=== PATIENT | female | born 1975 | race Caucasian/White ===

== ENCOUNTER 2017-02-05 10:43 | Emergency (ER) | payer BC, OTHER ==
[~2017-02-05] VITALS: Ht 177.8 cm; Wt 190.0 kg
[2017-02-05 10:52] VITALS: BP 133/89
--- NOTE | 2017-02-05 11:01 | PHYS DOC ---
Adult General Chief Complaint Chief Complaint: HEADACHE HPI HPI This a 41-year-old female who has history of migraine headaches who normally takes Topamax daily as well as Relpax which is a triptan. She states she has been unable to fill her Relpax prescription and for the last 3 days has had a progressively worsening headache in her usual migraine pattern. She has aura, light sensitivity, and photophobia with nausea. She denies any fever or chills. She denies any other history of health problems. Patient does have history of hysterectomy. She denies any neck tenderness. Patient is completely nontoxic and afebrile upon arrival. Review of Systems Review of Systems Constitutional: Denies fever or chills [] Eyes: Denies change in visual acuity, redness, or eye pain [] HENT: Denies nasal congestion or sore throat [] Respiratory: Denies cough or shortness of breath [] Cardiovascular: No additional information not addressed in HPI [] GI: Denies abdominal pain, nausea, vomiting, bloody stools or diarrhea [] : Denies dysuria or hematuria [] Musculoskeletal: Denies back pain or joint pain [] Integument: Denies rash or skin lesions [] Neurologic: Has headache, denies focal weakness or sensory changes [] Endocrine: Denies polyuria or polydipsia [] Allergies Allergies Allergies Coded Allergies Type Severity Reaction Last Updated Verified No Known Drug Allergies 02/05/17 No Physical Exam Physical Exam Constitutional: Well developed, well nourished, no acute distress, non-toxic appearance. [] HENT: Normocephalic, atraumatic, bilateral external ears normal, oropharynx moist, no oral exudates, nose normal. [] Eyes: PERRLA, EOMI, conjunctiva normal, no discharge. [] Neck: Normal range of motion, no tenderness, supple, no stridor. [] Cardiovascular:Heart rate regular rhythm, no murmur [] Lungs & Thorax: Bilateral breath sounds clear to auscultation [] Abdomen: Bowel sounds normal, soft, no tenderness, no masses, no pulsatile masses. [] Skin: Warm, dry, no erythema, no rash. [] Back: No tenderness, no CVA tenderness. [] Extremities: No tenderness, no cyanosis, no clubbing, ROM intact, no edema. [] Neurologic: Alert and oriented X 3, normal motor function, normal sensory function, no focal deficits noted. [] Psychologic: Affect normal, judgement normal, mood normal. [] EKG EKG [] Radiology/Procedures Radiology/Procedures [] Course & Med Decision Making Course & Med Decision Making Pertinent Labs and Imaging studies reviewed. (See chart for details) This otherwise healthy 41-year-old female is having symptoms of a worsening migraine headache. This is likely due to the fact that she hasn't been able to take her usual migraine prophylactic medications. Traditional migraine cocktail will be administered including a dose of IV Toradol, IV Benadryl, IV Reglan, IV Decadron, and an IV fluid bolus. Patient will then be reassessed. If improved, she will be discharged and told to remain in a quiet dark room for the next 24 hours to avoid any heavy stimulus and to follow closely with her primary care doctor. She says she has a prescription for her usual migraine medicines but has been unable to fill them because of insurance purposes. Upon my reassessment, after migraine cocktail the patient feels much improved. Return precautions were provided and the patient is instructed to remain in a quiet room for the next 24 hours and to get plenty of rest and drink plenty of fluids. She states she feels much better and will follow this plan. Dragon Disclaimer Dragon Disclaimer This chart was dictated in whole or in part using Voice Recognition software in a busy, high-work load, and often noisy Emergency Department environment. It may contain unintended and wholly unrecognized errors or omissions. Departure Departure: Impression: Primary Impression: Migraine Disposition: 01 HOME, SELF-CARE Condition: IMPROVED Referrals: JO HALL DO (PCP) Patient Instructions: Migraine Headache, [id number] Additional Instructions: Please continue to drink plenty of fluids and get plenty of rest. Follow up closely with your primary doctor in the next 2-3 days for your migraine headache if it should persist. Remain in a quiet, dark room for the next 24 hours. Return to the ER if you develop any worsening of your symptoms. GRADY CHRISTIANSEN DO Feb 05, 2017 11:01
[2017-02-05] MEDS ORDERED: METOCLOPRAMIDE HCL 10 MG/2 ML VIAL. IV ONE (11:15)
[2017-02-05] MEDS ORDERED: IV NORMAL SALINE 1,000ML 1,000 ML IV ONE (11:15)
[2017-02-05] MEDS ORDERED: DIPHENHYDRAMINE 50 MG/ML VIAL IVP ONE (11:15)
[2017-02-05] MEDS ORDERED: KETOROLAC 30 MG/ML VIAL. IV ONE (11:15)
[2017-02-05] MEDS ORDERED: DEXAMETHASONE SOD PHOS 10 MG/ML VIAL IV ONE (11:15)
== END 2017-02-05 11:50 | disposition home or self-care (01) ==
LOC: ER 10:43
DX: G43.109 Migraine with aura, not intractable, without status migrainosus (principal)
CPT/HCPCS: 96361; 96374; 96375; 99284; J1100; J1200; J1885; J2765; J7030

== ENCOUNTER 2017-06-14 05:58 | Emergency (ER) | payer BC ==
[~2017-06-14] VITALS: Ht 177.8 cm; Wt 111.3 kg
--- NOTE | 2017-06-14 06:24 | PHYS DOC ---
Past History Past Medical History: Migraines Past Surgical History: Hysterectomy Alcohol Use: None Drug Use: None Adult General Chief Complaint Chief Complaint: HEADACHE HPI HPI Patient is a [41-year-old female with a history of migraines going back 6 years presents with the similar type of migraine headache. Patient recommendation a home for the last 2 days. Hasn't been going away, she is only taking aspirin. There is no history of trauma, recent travel, sick contacts or exposures. Patient states the migraine is the same as previous ones. Review of Systems Review of Systems Constitutional: Denies fever or chills [] Eyes: Denies change in visual acuity, redness, or eye pain [] HENT: Denies nasal congestion or sore throat [] Respiratory: Denies cough or shortness of breath [] Cardiovascular: No chest pain GI: Denies abdominal pain, : Denies dysuria or hematuria [] Musculoskeletal: Denies back pain or joint pain [] Integument: Denies rash or skin lesions [] Neurologic: Denies focal weakness or sensory changes . Yes to headache Current Medications Current Medications Current Medications Medications (Trade) Dose Ordered Sig/Gilda Start Time Stop Time Status Last Admin Dose Admin Diphenhydramine HCl (Benadryl) 25 mg 1X ONCE 06/14/17 06:30 06/14/17 06:31 Metoclopramide HCl (Reglan) 10 mg 1X ONCE 06/14/17 06:30 06/14/17 06:31 Sodium Chloride 1,000 ml @ 1,000 mls/hr 1X ONCE 06/14/17 06:30 06/14/17 07:29 Allergies Allergies Allergies Coded Allergies Type Severity Reaction Last Updated Verified No Known Drug Allergies 02/05/17 No Physical Exam Physical Exam Constitutional: Well developed, well nourished, no acute distress, non-toxic appearance. [] HENT: Normocephalic, atraumatic, , oropharynx moist, no oral exudates, nose normal. [] Eyes: PERRLA, EOMI, conjunctiva normal, no discharge. No papilledema Neck: Normal range of motion, no tenderness, supple, no stridor. No LAD, no meningeal signs Cardiovascular:Heart rate regular rhythm, no murmur, normal perfusion Lungs & Thorax: Bilateral breath sounds clear to auscultation, no tachypnea Abdomen: Bowel sounds normal, soft, no tenderness, no masses, Skin: Warm, dry, no erythema, no rash. [] Back: Normal range of motion Extremities: No tenderness, no cyanosis, DVT, ROM intact, no edema. [] Neurologic: Alert and oriented X 3, normal motor function, ambulates with normal gait and without assistance, no focal deficits noted. Normal speech Psychologic: Affect normal, judgement normal, mood normal. [] EKG EKG [] Radiology/Procedures Radiology/Procedures [] Course & Med Decision Making Course & Med Decision Making Pertinent Labs and Imaging studies reviewed. (See chart for details) 0735 pt feel improved, headache resolve, requests discharge home. I spoke to patient about discussing her problems with her doctor and requesting a referral to neurologist [] Dragon Disclaimer Dragon Disclaimer This chart was dictated in whole or in part using Voice Recognition software in a busy, high-work load, and often noisy Emergency Department environment. It may contain unintended and wholly unrecognized errors or omissions. Departure Departure: Impression: Primary Impression: Migraine Disposition: 01 HOME, SELF-CARE Condition: IMPROVED Referrals: JO HALL DO (PCP) follow up in 2-3 days Patient Instructions: Migraine Headache Ce HARRINGTON MD Jun 14, 2017 06:24
[2017-06-14] MEDS ORDERED: diphenhydrAMINE 50 MG/ML VIAL IVP ONE (06:30)
[2017-06-14] MEDS ORDERED: METOCLOPRAMIDE HCL 10 MG/2 ML VIAL. IV ONE (06:30)
[2017-06-14] MEDS ORDERED: IV NORMAL SALINE 1,000ML 1,000 ML IV ONE (06:30)
[2017-06-14] MEDS ORDERED: DEXAMETHASONE SOD PHOS 10 MG/ML VIAL IV ONE (07:15)
[2017-06-14] MEDS ORDERED: KETOROLAC 30 MG/ML VIAL. IV ONE (07:15)
[2017-06-14 07:40] VITALS: BP 132/87
== END 2017-06-14 07:40 | disposition home or self-care (01) ==
LOC: ER 05:58
DX: G43.909 Migraine, unspecified, not intractable, without status migrainosus (principal)
CPT/HCPCS: 96361; 96374; 96375; 99284; J1100; J1200; J1885; J2765; J7030

== ENCOUNTER → 2017-06-26 | Outpatient (CLI) | payer BC ==
[2017-06-14 07:40] VITALS: BP 132/87
[~2017-06-26] MED LIST: AMOX500C PO
== END | disposition home or self-care (01) ==
LOC: SURG 11:11
PROVIDERS: ATTEND Anesthesiology Pain Medicine
DX: M47.817 Spondylosis without myelopathy or radiculopathy, lumbosacral region (principal); M53.3 Sacrococcygeal disorders, not elsewhere classified; D18.09 Hemangioma of other sites
CPT/HCPCS: 99204

== ENCOUNTER → 2017-07-14 | Outpatient (CLI) | payer BC ==
[2017-06-14 07:40] VITALS: BP 132/87
[~2017-07-14] MED LIST changes: -AMOX500C PO; +ATROPINE 1 MG/10 ML DISP.SYRIN ONE; +BUPIVACAINE MPF 0.25% 10 ML VIAL. ONE; +DEXAMETHASONE SOD PHOS 4 MG/ML VIAL ONE; +EPINEPHrine SYRINGE 1 MG/10 ML SYRINGE ONE; +FLUMAZENIL 0.5 MG/5 ML VIAL. IV ONE; +GLUCAGON,HUMAN RECOMBINANT 1 MG KIT. ONE; +IV NORMAL SALINE 250ML 250 ML ONE; +LIDOCAINE 1% PF 30 ML VIAL. ONE; +MIDAZOLAM HCL PF 2 MG/2 ML VIAL. ONE; +NALOXONE 0.4 MG/ML VIAL. ONE; +diphenhydrAMINE 50 MG/ML VIAL ONE
== END | disposition home or self-care (01) ==
LOC: SURG 15:29
PROVIDERS: ATTEND Anesthesiology
DX: M53.3 Sacrococcygeal disorders, not elsewhere classified (principal)
CPT/HCPCS: 64450; 64493; 64494; J0171; J0461; J1100; J1200; J1610; J2001; J2250; J2310; J3010; J3490; J7050

== ENCOUNTER → 2017-08-14 | Outpatient (CLI) | payer BC | END | disposition home or self-care (01) | LOC: SURG 15:19 | PROVIDERS: ATTEND Anesthesiology Pain Medicine | DX: M54.2 Cervicalgia (principal); M47.817 Spondylosis without myelopathy or radiculopathy, lumbosacral region; D18.09 Hemangioma of other sites; M53.3 Sacrococcygeal disorders, not elsewhere classified; M06.9 Rheumatoid arthritis, unspecified; I48.91 Unspecified atrial fibrillation; E03.9 Hypothyroidism, unspecified; K52.9 Noninfective gastroenteritis and colitis, unspecified; K27.9 Peptic ulcer, site unspecified, unspecified as acute or chronic, without hemorrhage or perforation | CPT/HCPCS: 99213 ==

== ENCOUNTER 2017-09-17 08:01 | Emergency (ER) | payer BC ==
[~2017-09-17] VITALS: Ht 177.8 cm; Wt 111.1 kg
[2017-09-17] MEDS ORDERED: IV NORMAL SALINE 1,000ML 1,000 ML IV ONE (08:30)
[2017-09-17] MEDS ORDERED: diphenhydrAMINE 50 MG/ML VIAL IVP ONE (08:30)
[2017-09-17] MEDS ORDERED: PROCHLORPERAZINE 10 MG/2 ML VIAL. IV ONE (08:30)
[2017-09-17] MEDS ORDERED: KETOROLAC 30 MG/ML VIAL. IV ONE (08:30)
[2017-09-17 08:34] LABS: BASO % 1 % (0-3); EOS % 0 % (0-3); HEMATOCRIT 44.5 % (36.0-47.0); LYMPH # 1.5 x10^3/uL (1.0-4.8); LYMPH % 16 % (24-48); MEAN CORPUSCULAR HEMOGLOBIN 30 pg (25-35); MEAN CORPUSCULAR HGB CONC 34 g/dL (31-37); MEAN CORPUSCULAR VOLUME 88 fL (79-100); MONO # 0.5 x10^3/uL (0.0-1.1); MONO % 6 % (0-9); NEUT # 7.2 x10^3uL (1.8-7.7); NEUT % 78 % (31-73); PLATELET COUNT 286 x10^3/uL (140-400); RED BLOOD COUNT 5.07 x10^6/uL (3.50-5.40); RED CELL DISTRIBUTION WIDTH 13.1 % (11.5-14.5); WHITE BLOOD COUNT 9.3 x10^3/uL (4.0-11.0)
[2017-09-17 08:44] LABS: CALCIUM 9.5 mg/dL (8.5-10.1); CREATININE 0.9 mg/dL (0.6-1.0); GFR 69.3; POTASSIUM 3.5 mmol/L (3.5-5.1)
[2017-09-17] MEDS ORDERED: IV NORMAL SALINE 50ML 50 ML ONE (08:58)
[2017-09-17] MEDS ORDERED: cefTRIAXone SODIUM 1 GM VIAL IV ONE (08:59)
[2017-09-17] MEDS ORDERED: AMOX500C PO (09:03)
--- NOTE | 2017-09-17 09:20 | PHYS DOC ---
Past History Past Medical History: Migraines Past Surgical History: Hysterectomy Alcohol Use: None Drug Use: None Adult General Chief Complaint Chief Complaint: HEADACHE HPI HPI Patient is a 41 year old F who presents with a migraine headache and nasal congestion. Malinda states that she has had nasal congestion over the past week which is been associated with cough and nasal drainage. She also has a history of migraine headaches associated with nausea and typically left sided head pain. Her symptoms today are consistent with her previous migraines with the addition of left-sided cheek pain and respiratory symptoms listed previously. She has no other associated symptoms. Her headache is worsened by light and noise exposure. She feels that her symptoms were mildly improved by over-the- counter medication. Review of Systems Review of Systems Constitutional: Denies fever or chills [] Eyes: Denies change in visual acuity, redness, or eye pain [] HENT: Negative except history of present illness Respiratory: Denies cough or shortness of breath [] Cardiovascular: No additional information not addressed in HPI [] GI: Denies abdominal pain, nausea, vomiting, bloody stools or diarrhea [] : Denies dysuria or hematuria [] Musculoskeletal: Denies back pain or joint pain [] Integument: Denies rash or skin lesions [] Neurologic: Denies focal weakness or sensory changes [] Endocrine: Denies polyuria or polydipsia [] All other systems were reviewed and found to be within normal limits, except as documented in this note. Family History Family History Noncontributory Current Medications Current Medications Current medications were reviewed Current Medications Medications (Trade) Dose Ordered Sig/Gilda Start Time Stop Time Status Last Admin Dose Admin Ceftriaxone Sodium 1 gm/ Sodium Chloride 50 ml @ 100 mls/hr 1X ONCE 09/17/17 08:45 09/17/17 09:14 Diphenhydramine HCl (Benadryl) 25 mg 1X ONCE 09/17/17 08:30 09/17/17 08:31 DC Ketorolac Tromethamine (Toradol) 30 mg 1X ONCE 09/17/17 08:30 09/17/17 08:31 DC Prochlorperazine Edisylate (Compazine) 10 mg 1X ONCE 09/17/17 08:30 09/17/17 08:31 DC Sodium Chloride 1,000 ml @ 1,000 mls/hr 1X ONCE 09/17/17 08:30 09/17/17 09:29 Allergies Allergies Allergies Coded Allergies Type Severity Reaction Last Updated Verified No Known Drug Allergies 02/05/17 No Physical Exam Physical Exam Constitutional: Well developed, well nourished, no acute distress, non-toxic appearance. [] HENT: Normocephalic, atraumatic, bilateral external ears normal, oropharynx moist, no oral exudates, mild to moderate bilateral nasal turbinate edema and erythema worse on the left compared to the right. Left maxillary tenderness and erythema noted on the face Eyes: PERRLA, EOMI, conjunctiva normal, no discharge. [] Neck: Normal range of motion, no tenderness, supple, no stridor. [] Cardiovascular:Heart rate regular rhythm, no murmur [] Lungs & Thorax: Bilateral breath sounds clear to auscultation [] Abdomen: Bowel sounds normal, soft, no tenderness, no masses, no pulsatile masses. [] Skin: Warm, dry, no erythema, no rash. [] Back: No tenderness, no CVA tenderness. [] Extremities: No tenderness, no cyanosis, no clubbing, ROM intact, no edema. [] Neurologic: Alert and oriented X 3, normal motor function, normal sensory function, no focal deficits noted. [] Psychologic: Affect normal, judgement normal, mood normal. [] Current Patient Data Vital Signs Vital Signs Date Time Temp Pulse Resp B/P (MAP) Pulse Ox O2 Delivery O2 Flow Rate FiO2 09/17/17 08:01 98.4 100 20 98 Room Air Lab Results Laboratory Tests Test 09/17/17 08:24 White Blood Count 9.3 x10^3/uL (4.0-11.0) Red Blood Count 5.07 x10^6/uL (3.50-5.40) Hemoglobin 15.0 g/dL (12.0-15.5) Hematocrit 44.5 % (36.0-47.0) Mean Corpuscular Volume 88 fL (79-100) Mean Corpuscular Hemoglobin 30 pg (25-35) Mean Corpuscular Hemoglobin Concent 34 g/dL (31-37) Red Cell Distribution Width 13.1 % (11.5-14.5) Platelet Count 286 x10^3/uL (140-400) Neutrophils (%) (Auto) 78 % (31-73) H Lymphocytes (%) (Auto) 16 % (24-48) L Monocytes (%) (Auto) 6 % (0-9) Eosinophils (%) (Auto) 0 % (0-3) Basophils (%) (Auto) 1 % (0-3) Neutrophils # (Auto) 7.2 x10^3uL (1.8-7.7) Lymphocytes # (Auto) 1.5 x10^3/uL (1.0-4.8) Monocytes # (Auto) 0.5 x10^3/uL (0.0-1.1) Eosinophils # (Auto) 0.0 x10^3/uL (0.0-0.7) Basophils # (Auto) 0.0 x10^3/uL (0.0-0.2) Sodium Level 141 mmol/L (136-145) Potassium Level 3.5 mmol/L (3.5-5.1) Chloride Level 106 mmol/L (98-107) Carbon Dioxide Level 25 mmol/L (21-32) Anion Gap 10 (6-14) Blood Urea Nitrogen 13 mg/dL (7-20) Creatinine 0.9 mg/dL (0.6-1.0) Estimated GFR (Cockcroft-Gault) 69.3 Glucose Level 108 mg/dL (70-99) H Calcium Level 9.5 mg/dL (8.5-10.1) EKG EKG [] Radiology/Procedures Radiology/Procedures [] Course & Med Decision Making Course & Med Decision Making Pertinent Labs and Imaging studies reviewed. (See chart for details) [] Dragon Disclaimer Dragon Disclaimer This electronic medical record was generated, in whole or in part, using a voice recognition dictation system. Departure Departure: Impression: Primary Impression: Migraine Additional Impression: Sinusitis Disposition: 01 HOME, SELF-CARE Condition: STABLE Referrals: JO HALL DO (PCP) Patient Instructions: Migraine Headache, Sinusitis Additional Instructions: Germaine was seen in the emergency department for headache and nasal congestion. No emergency medical condition was found in history or physical exam. She did have normal labs. Her symptoms are most consistent with acute bacterial sinusitis, or sinus infection, associated with a migraine. Her symptoms were treated in the emergency room with pain and nausea medication, IV fluids and antibiotics. She was given a prescription for antibiotics and advised to use nasal saline rinses regularly. She is advised follow-up with her primary care doctor in the next 3-5 days for further management. Scripts Amoxicillin (AMOXICILLIN) 500 Mg Capsule 1 CAP PO TID for 7 Days, #21 CAP Prov: JEAN STONE MD 09/17/17 Problem Qualifiers Primary Impression: Migraine Migraine type: unspecified Status migrainosus presence: without status migrainosus Intractability: not intractable Qualified Codes: G43.909 - Migraine, unspecified, not intractable, without status migrainosus Additional Impression: Sinusitis Sinusitis location: maxillary Chronicity: acute Recurrence: non-recurrent Qualified Codes: J01.00 - Acute maxillary sinusitis, unspecified JEAN STONE MD Sep 17, 2017 09:20
[2017-09-17 09:45] VITALS: BP 133/92
== END 2017-09-17 09:50 | disposition home or self-care (01) ==
LOC: ER 08:01
DX: G43.909 Migraine, unspecified, not intractable, without status migrainosus (principal); J01.00 Acute maxillary sinusitis, unspecified
CPT/HCPCS: 36415; 80048; 85025; 96365; 96375; 99284; J0696; J0780; J1200; J1885; J7030

== ENCOUNTER → 2018-03-29 | Outpatient (CLI) | payer BC ==
[~2018-03-29] MED LIST changes: +AMOX500C PO; -ATROPINE 1 MG/10 ML DISP.SYRIN ONE; -BUPIVACAINE MPF 0.25% 10 ML VIAL. ONE; -DEXAMETHASONE SOD PHOS 4 MG/ML VIAL ONE; -EPINEPHrine SYRINGE 1 MG/10 ML SYRINGE ONE; -FLUMAZENIL 0.5 MG/5 ML VIAL. IV ONE; -GLUCAGON,HUMAN RECOMBINANT 1 MG KIT. ONE; -IV NORMAL SALINE 250ML 250 ML ONE; -LIDOCAINE 1% PF 30 ML VIAL. ONE; -MIDAZOLAM HCL PF 2 MG/2 ML VIAL. ONE; -NALOXONE 0.4 MG/ML VIAL. ONE; -diphenhydrAMINE 50 MG/ML VIAL ONE
--- NOTE | 2018-03-29 11:48 | RAD ---
DATE: 03/29/2018 EXAM: MAMMO MARKEL SCREENING BILATERAL HISTORY: Routine screening with breast implants COMPARISON: 10/09/2016 This study was interpreted with the benefit of Computerized Aided Detection (CAD). The breast parenchyma is heterogeneously dense, which could reduce sensitivity of mammography. Breast parenchyma level C. FINDINGS: Routine 2-D and implant exclusion views were obtained in CC and MLO projections. 3-D tomosynthesis imaging was also performed. The bilateral breast implants are unchanged. No new or enlarging breast densities are seen. Minimal benign type calcifications are present. No suspicious microcalcifications have developed. IMPRESSION: There is no mammographic evidence of malignancy in either breast. BI-RADS CATEGORY: 2 BENIGN FINDING(S) RECOMMENDED FOLLOW-UP: 12M 12 MONTH FOLLOW-UP PQRS compliance statement: Patient information was entered into a reminder system with a target due date for the next mammogram. Mammography is a sensitive method for finding small breast cancers, but it does not detect them all and is not a substitute for careful clinical examination. A negative mammogram does not negate a clinically suspicious finding and should not result in delay in biopsying a clinically suspicious abnormality. "Our facility is accredited by the [employer] Mammography Program."
== END | disposition home or self-care (01) ==
LOC: MAMMO 09:04
PROVIDERS: ATTEND Physician Assistant Medical
DX: Z12.31 Encounter for screening mammogram for malignant neoplasm of breast (principal)
CPT/HCPCS: 77063; 77067

== ENCOUNTER 2018-06-02 14:34 | Emergency (ER) | payer SELFPAY ==
[~2018-06-02] VITALS: Ht 180.3 cm; Wt 108.9 kg
[2018-06-02] MEDS ORDERED: IV NORMAL SALINE 1,000ML 1,000 ML IV ONE (15:00)
[2018-06-02 15:13] LABS: BASO # 0.1 x10^3/uL (0.0-0.2); BASO % 1 % (0-3); EOS % 0 % (0-3); HEMATOCRIT 46.2 % (36.0-47.0); HEMOGLOBIN 15.6 g/dL (12.0-15.5); LYMPH # 0.9 x10^3/uL (1.0-4.8); LYMPH % 11 % (24-48); MEAN CORPUSCULAR HEMOGLOBIN 29 pg (25-35); MEAN CORPUSCULAR HGB CONC 34 g/dL (31-37); MEAN CORPUSCULAR VOLUME 87 fL (79-100); MONO # 0.3 x10^3/uL (0.0-1.1); MONO % 4 % (0-9); NEUT # 7.1 x10^3uL (1.8-7.7); NEUT % 85 % (31-73); PLATELET COUNT 282 x10^3/uL (140-400); RED BLOOD COUNT 5.32 x10^6/uL (3.50-5.40); RED CELL DISTRIBUTION WIDTH 13.3 % (11.5-14.5); WHITE BLOOD COUNT 8.4 x10^3/uL (4.0-11.0)
[2018-06-02 15:14] LABS: CALCIUM 9.4 mg/dL (8.5-10.1); CREATININE 0.9 mg/dL (0.6-1.0); POTASSIUM 4.1 mmol/L (3.5-5.1)
[2018-06-02] MEDS ORDERED: KETOROLAC 30 MG/ML VIAL. IV ONE (15:15)
[2018-06-02] MEDS ORDERED: METOCLOPRAMIDE HCL 10 MG/2 ML VIAL. IV ONE (15:15)
[2018-06-02] MEDS ORDERED: DEXAMETHASONE SOD PHOS 4 MG/ML VIAL IV ONE (15:15)
--- NOTE | 2018-06-02 15:58 | PHYS DOC ---
Past History Past Medical History: Migraines Past Surgical History: Hysterectomy Smoking: Non-smoker Alcohol Use: None Drug Use: None Adult General Chief Complaint Chief Complaint: HEADACHE HPI HPI Patient is a 42-year-old female who presents with complaining of migraine headache. Patient states she woke up at 3 AM because of left side throbbing and sharp pain as a constant pain with nausea and 2 episodes of vomiting and chills without neck pain, fever, focal neuro deficit. Patient states the pain was 5 and gradually increased to 8-9 like her previous episodes of migraine headache. Patient states she took Imitrex without improvement of her pain. Review of Systems Review of Systems Constitutional: Denies fever Eyes: Denies change in visual acuity, redness, or eye pain [] HENT: Denies nasal congestion or sore throat [] Respiratory: Denies cough or shortness of breath [] Cardiovascular: No additional information not addressed in HPI [] GI: Denies abdominal pain, bloody stools or diarrhea, reports nausea and vomiting [] : Denies dysuria or hematuria [] Musculoskeletal: Denies back pain or joint pain [] Integument: Denies rash or skin lesions [] Neurologic: Reports headache, denies focal weakness or sensory changes [] Endocrine: Denies polyuria or polydipsia [] All other systems were reviewed and found to be within normal limits, except as documented in this note. Current Medications Current Medications Current Medications Medications (Trade) Dose Ordered Sig/Gilda Start Time Stop Time Status Last Admin Dose Admin Dexamethasone Sodium Phosphate (Decadron) 4 mg 1X ONCE 06/02/18 15:15 06/02/18 15:16 DC 06/02/18 15:07 4 MG Fentanyl Citrate (Fentanyl 2ml Vial) 50 mcg 1X ONCE 06/02/18 16:00 06/02/18 16:01 Ketorolac Tromethamine (Toradol 30mg Vial) 30 mg 1X ONCE 06/02/18 15:15 06/02/18 15:16 DC 06/02/18 15:07 30 MG Metoclopramide HCl (Reglan Vial) 10 mg 1X ONCE 06/02/18 15:15 06/02/18 15:16 DC 06/02/18 15:07 10 MG Sodium Chloride 1,000 ml @ 1,000 mls/hr 1X ONCE 06/02/18 15:00 06/02/18 15:59 06/02/18 15:06 1,000 MLS/HR Allergies Allergies Allergies Coded Allergies Type Severity Reaction Last Updated Verified No Known Drug Allergies 02/05/17 No Physical Exam Physical Exam Constitutional: Well developed, well nourished, moderate distress, non-toxic appearance. [] HENT: Normocephalic, atraumatic, bilateral external ears normal, oropharynx moist, no oral exudates, nose normal. [] Eyes: PERRLA, EOMI, conjunctiva normal, no discharge. [] Neck: Normal range of motion, no tenderness, supple, no stridor. [] Cardiovascular:Heart rate regular rhythm, no murmur [] Lungs & Thorax: Bilateral breath sounds clear to auscultation [] Abdomen: Bowel sounds normal, soft, no tenderness, no masses, no pulsatile masses. [] Skin: Warm, dry, no erythema, no rash. [] Back: No tenderness, no CVA tenderness. [] Extremities: No tenderness, no cyanosis, no clubbing, ROM intact, no edema. [] Neurologic: Alert and oriented X 3, normal motor function, normal sensory function, no focal deficits noted. [] Psychologic: Affect normal, judgement normal, mood normal. [] Current Patient Data Vital Signs Vital Signs Date Time Temp Pulse Resp B/P (MAP) Pulse Ox O2 Delivery O2 Flow Rate FiO2 06/02/18 14:34 98.4 91 20 100 Room Air Lab Results Laboratory Tests Test 06/02/18 14:50 White Blood Count 8.4 x10^3/uL (4.0-11.0) Red Blood Count 5.32 x10^6/uL (3.50-5.40) Hemoglobin 15.6 g/dL (12.0-15.5) H Hematocrit 46.2 % (36.0-47.0) Mean Corpuscular Volume 87 fL (79-100) Mean Corpuscular Hemoglobin 29 pg (25-35) Mean Corpuscular Hemoglobin Concent 34 g/dL (31-37) Red Cell Distribution Width 13.3 % (11.5-14.5) Platelet Count 282 x10^3/uL (140-400) Neutrophils (%) (Auto) 85 % (31-73) H Lymphocytes (%) (Auto) 11 % (24-48) L Monocytes (%) (Auto) 4 % (0-9) Eosinophils (%) (Auto) 0 % (0-3) Basophils (%) (Auto) 1 % (0-3) Neutrophils # (Auto) 7.1 x10^3uL (1.8-7.7) Lymphocytes # (Auto) 0.9 x10^3/uL (1.0-4.8) L Monocytes # (Auto) 0.3 x10^3/uL (0.0-1.1) Eosinophils # (Auto) 0.0 x10^3/uL (0.0-0.7) Basophils # (Auto) 0.1 x10^3/uL (0.0-0.2) Sodium Level 142 mmol/L (136-145) Potassium Level 4.1 mmol/L (3.5-5.1) Chloride Level 106 mmol/L (98-107) Carbon Dioxide Level 23 mmol/L (21-32) Anion Gap 13 (6-14) Blood Urea Nitrogen 13 mg/dL (7-20) Creatinine 0.9 mg/dL (0.6-1.0) Estimated GFR (Cockcroft-Gault) 69.0 Glucose Level 115 mg/dL (70-99) H Calcium Level 9.4 mg/dL (8.5-10.1) EKG EKG [] Radiology/Procedures Radiology/Procedures [] Course & Med Decision Making Course & Med Decision Making Pertinent Labs reviewed. (See chart for details) Evaluation of patient in ER showed 42-year-old female patient with complaining of migraine headache since this morning and nausea and vomiting. Patient treated with IV fluid, Reglan, Decadron, Toradol with mild improvement of pain. Patient had fentanyl and pain dropped to 2 or 3. Patient feels comfortable to go home. Patient has Imitrex at home and plan to give prescription of Fioricet. [] Dragon Disclaimer Dragon Disclaimer This electronic medical record was generated, in whole or in part, using a voice recognition dictation system. Departure Departure: Impression: Primary Impression: Migraine headache Additional Impression: Nausea and vomiting Disposition: HOME, SELF-CARE (@1157) Condition: IMPROVED Referrals: TAVON HOSKINS (PCP) Patient Instructions: Migraine Headache, Nausea and Vomiting Additional Instructions: Drink plenty of liquids Follow-up with your primary care physician in 3-5 days Return to ER if not getting better Scripts Butalbital/Aspirin/Caffeine (FIORINAL 50-325-40 MG CAPSULE) 1 Each Capsule 1 EACH PO QID PRN for HEADACHE, #20 CAP Prov: JENNIFER LINK MD 06/02/18 Problem Qualifiers JENNIFER LINK MD Jun 02, 2018 15:58
[2018-06-02] MEDS ORDERED: BUTA1CAP31 PO (16:26)
[2018-06-02 16:35] VITALS: BP 127/89
== END 2018-06-02 16:35 | disposition home or self-care (01) ==
LOC: ER 14:34
DX: G43.909 Migraine, unspecified, not intractable, without status migrainosus (principal); R11.2 Nausea with vomiting, unspecified
CPT/HCPCS: 36415; 80048; 85025; 96361; 96374; 96375; 99284; J1100; J1885; J2765; J3010; J7030

== ENCOUNTER 2018-08-18 10:53 | Emergency (ER) | payer SELFPAY ==
[~2018-08-18] VITALS: Ht 180.3 cm; Wt 110.7 kg
[~2018-08-18 10:53] MED LIST changes: +BUTA1CAP31 PO
[2018-08-18] MEDS: IV NORMAL SALINE 1,000ML 1,000 ML IV ONE (12:27)
[2018-08-18] MEDS: KETOROLAC 30 MG/ML VIAL. IV ONE (12:29)
[2018-08-18] MEDS: METOCLOPRAMIDE HCL 10 MG/2 ML VIAL. IV ONE (12:30)
[2018-08-18] MEDS: diphenhydrAMINE HCL 25 MG CAPSULE PO ONE (12:30)
[2018-08-18 12:41] LABS: BASO % 1 % (0-3); CALCIUM 8.8 mg/dL (8.5-10.1); CREATININE 0.8 mg/dL (0.6-1.0); EOS % 0 % (0-3); HEMATOCRIT 46.3 % (36.0-47.0); HEMOGLOBIN 15.4 g/dL (12.0-15.5); LYMPH # 0.9 x10^3/uL (1.0-4.8); LYMPH % 13 % (24-48); MEAN CORPUSCULAR HEMOGLOBIN 29 pg (25-35); MEAN CORPUSCULAR HGB CONC 33 g/dL (31-37); MEAN CORPUSCULAR VOLUME 89 fL (79-100); MONO # 0.3 x10^3/uL (0.0-1.1); MONO % 4 % (0-9); NEUT # 5.6 x10^3uL (1.8-7.7); NEUT % 82 % (31-73); PLATELET COUNT 275 x10^3/uL (140-400); POTASSIUM 4.1 mmol/L (3.5-5.1); RED BLOOD COUNT 5.23 x10^6/uL (3.50-5.40); RED CELL DISTRIBUTION WIDTH 13.6 % (11.5-14.5); WHITE BLOOD COUNT 6.8 x10^3/uL (4.0-11.0)
--- NOTE | 2018-08-18 13:00 | PHYS DOC ---
Past History Past Medical History: Migraines Past Surgical History: Hysterectomy Smoking: Non-smoker Alcohol Use: None Drug Use: None Adult General Chief Complaint Chief Complaint: HEADACHE HPI HPI 42-year-old female presents with headache. Patient states she has a headache with pressure like sensation in the left side of her head that started yesterday. Patient has history of migraines and this is similar to her previous episodes. She rates the pain as moderate to severe. She has photophobia. She did have an episode of vomiting this morning. She is currently out of her Imitrex, waiting for a refill. This usually works well for her if she is able to take it in time. She denies fever or chills. Review of Systems Review of Systems Constitutional: Denies fever or chills [] Eyes: Denies change in visual acuity, redness, or eye pain [] HENT: Denies nasal congestion or sore throat [] Respiratory: Denies cough or shortness of breath [] Cardiovascular: No additional information not addressed in HPI [] GI: Denies abdominal pain, nausea, vomiting, bloody stools or diarrhea [] : Denies dysuria or hematuria [] Musculoskeletal: Denies back pain or joint pain [] Integument: Denies rash or skin lesions [] Neurologic: Headache with photophobia[] Endocrine: Denies polyuria or polydipsia [] All other systems were reviewed and found to be within normal limits, except as documented in this note. Current Medications Current Medications Current Medications Medications (Trade) Dose Ordered Sig/Gilda Start Time Stop Time Status Last Admin Dose Admin Diphenhydramine HCl (Benadryl) 25 mg 1X ONCE 08/18/18 12:15 08/18/18 12:16 DC 08/18/18 12:30 25 MG Ketorolac Tromethamine (Toradol 30mg Vial) 30 mg 1X ONCE 08/18/18 12:15 08/18/18 12:16 DC 08/18/18 12:29 30 MG Metoclopramide HCl (Reglan Vial) 10 mg 1X ONCE 08/18/18 12:15 08/18/18 12:16 DC 08/18/18 12:30 10 MG Sodium Chloride 1,000 ml @ 1,000 mls/hr 1X ONCE 08/18/18 12:15 08/18/18 13:14 08/18/18 12:27 1,000 MLS/HR Allergies Allergies Allergies Coded Allergies Type Severity Reaction Last Updated Verified No Known Drug Allergies 02/05/17 No Physical Exam Physical Exam Constitutional: Well developed, well nourished, no acute distress, non-toxic appearance. Appears to be uncomfortable.[] HENT: Normocephalic, atraumatic, bilateral external ears normal, oropharynx moist, no oral exudates, nose normal. [] Eyes: PERRLA, EOMI, conjunctiva normal, no discharge. Photophobia [] Neck: Normal range of motion, no tenderness, supple, no stridor. [] Cardiovascular:Heart rate regular rhythm, no murmur [] Lungs & Thorax: Bilateral breath sounds clear to auscultation [] Abdomen: Bowel sounds normal, soft, no tenderness, no masses, no pulsatile masses. [] Skin: Warm, dry, no erythema, no rash. [] Back: No tenderness, no CVA tenderness. [] Extremities: No tenderness, no cyanosis, no clubbing, ROM intact, no edema. [] Neurologic: Alert and oriented X 3, normal motor function, normal sensory function, no focal deficits noted. [] Psychologic: Affect normal, judgement normal, mood normal. [] Current Patient Data Vital Signs Vital Signs Date Time Temp Pulse Resp B/P (MAP) Pulse Ox O2 Delivery O2 Flow Rate FiO2 08/18/18 10:53 98.3 76 18 97 Room Air Lab Results Laboratory Tests Test 08/18/18 12:20 White Blood Count 6.8 x10^3/uL (4.0-11.0) Red Blood Count 5.23 x10^6/uL (3.50-5.40) Hemoglobin 15.4 g/dL (12.0-15.5) Hematocrit 46.3 % (36.0-47.0) Mean Corpuscular Volume 89 fL (79-100) Mean Corpuscular Hemoglobin 29 pg (25-35) Mean Corpuscular Hemoglobin Concent 33 g/dL (31-37) Red Cell Distribution Width 13.6 % (11.5-14.5) Platelet Count 275 x10^3/uL (140-400) Neutrophils (%) (Auto) 82 % (31-73) H Lymphocytes (%) (Auto) 13 % (24-48) L Monocytes (%) (Auto) 4 % (0-9) Eosinophils (%) (Auto) 0 % (0-3) Basophils (%) (Auto) 1 % (0-3) Neutrophils # (Auto) 5.6 x10^3uL (1.8-7.7) Lymphocytes # (Auto) 0.9 x10^3/uL (1.0-4.8) L Monocytes # (Auto) 0.3 x10^3/uL (0.0-1.1) Eosinophils # (Auto) 0.0 x10^3/uL (0.0-0.7) Basophils # (Auto) 0.0 x10^3/uL (0.0-0.2) Sodium Level 138 mmol/L (136-145) Potassium Level 4.1 mmol/L (3.5-5.1) Chloride Level 102 mmol/L (98-107) Carbon Dioxide Level 24 mmol/L (21-32) Anion Gap 12 (6-14) Blood Urea Nitrogen 10 mg/dL (7-20) Creatinine 0.8 mg/dL (0.6-1.0) Estimated GFR (Cockcroft-Gault) 79.0 Glucose Level 106 mg/dL (70-99) H Calcium Level 8.8 mg/dL (8.5-10.1) EKG EKG [] Radiology/Procedures Radiology/Procedures [] Course & Med Decision Making Course & Med Decision Making Pertinent Labs and Imaging studies reviewed. (See chart for details) I will give the patient 1 L normal saline, 30 mg Toradol IV, 25 mg of Benadryl by mouth, 10 mg Reglan IV.[] The patient's labs are unremarkable. She is feeling much better at this time. She is stable for discharge. Dragon Disclaimer Dragon Disclaimer This electronic medical record was generated, in whole or in part, using a voice recognition dictation system. Departure Departure: Referrals: TAVON HOSKINS (PCP) MITZI DAVILA DO Aug 18, 2018 13:00
[2018-08-18 14:04] VITALS: BP 134/95
== END 2018-08-18 14:04 | disposition home or self-care (01) ==
LOC: ER 10:53
DX: R51 Headache (principal); R11.10 Vomiting, unspecified; G43.909 Migraine, unspecified, not intractable, without status migrainosus
CPT/HCPCS: 36415; 80048; 85025; 96361; 96374; 96375; 99285; J1885; J2765; Q0163; J7030

== ENCOUNTER → 2018-11-15 | Outpatient (CLI) | payer OTHER ==
--- NOTE | 2018-11-15 12:06 | RAD ---
Indication:HEEL PAIN TECHNIQUE: 2 views of the left ankle and 2 views of the calcaneus COMPARISON:None FINDINGS/ impression: No acute fracture or dislocation. Small plantar calcaneal spur. Electronically signed by: Desmond Tong DO (11/15/2018 12:01 PM) [id number]
== END | disposition home or self-care (01) ==
LOC: PMG 11:00
PROVIDERS: ATTEND Registered Nurse
DX: M77.32 Calcaneal spur, left foot (principal)
CPT/HCPCS: 73600; 73650

== ENCOUNTER → 2019-02-18 | Outpatient (CLI) | payer OTHER ==
--- NOTE | 2019-02-18 16:08 | RAD ---
Cervical spine, 3 views, 02/18/2019: HISTORY: Neck pain and headache, lifting injury There is slight reversal of the normal cervical lordosis in the mid cervical spine. The cervical vertebral heights are well-maintained. No acute fractures evident. There is mild disc space narrowing and minimal spurring at C5-6. There are mild degenerative changes involving scattered facet joints. There is a slight anterolisthesis at C4-5. The open-mouth view of the odontoid region is inadequate due to overpenetration. The prevertebral soft tissues are unremarkable. IMPRESSION: 1. Mild degenerative disc disease at C5-6. 2. Mild degenerative change involving scattered facet joints. 3. Slight anterolisthesis at C4-5, likely due to facet joint arthropathy. Electronically signed by: Alvin Caal MD (02/18/2019 4:05 PM) [facility]
== END | disposition home or self-care (01) ==
LOC: RAD 11:09
PROVIDERS: ATTEND Registered Nurse
DX: M50.322 Other cervical disc degeneration at C5-C6 level (principal); M48.02 Spinal stenosis, cervical region; M47.812 Spondylosis without myelopathy or radiculopathy, cervical region; M40.292 Other kyphosis, cervical region
CPT/HCPCS: 72040

== ENCOUNTER → 2019-09-05 | Outpatient (CLI) | payer OTHER ==
--- NOTE | 2019-09-05 16:58 | RAD ---
EXAM: Chest, 2 views. HISTORY: Cough. COMPARISON: None. FINDINGS: 2 views of the chest are obtained. There is faint right upper lobe opacity likely due to focal interstitial infiltrate. There are implanted breast prostheses. The heart is normal in size. There is no pleural effusion or pneumothorax. IMPRESSION: Suspected right upper lobe interstitial infiltrate. Electronically signed by: Mouna Olson MD (09/05/2019 4:55 PM) [id number]
== END | disposition home or self-care (01) ==
LOC: PMG 14:29
PROVIDERS: ATTEND Registered Nurse
DX: R05 Cough (principal)
CPT/HCPCS: 71046

== ENCOUNTER → 2020-04-19 | Outpatient (CLI) | payer OTHER ==
--- NOTE | 2020-04-20 17:51 | RAD ---
EXAM: BILATERAL DIGITAL 3D SCREENING MAMMOGRAPHY. HISTORY: Routine mammographic screening. TECHNIQUE: Bilateral digital 3D and tomographic images were obtained in CC and MLO projections. Computer-aided detection was applied. COMPARISON: 03/29/2018, 10/09/2016. COMPOSITION: C. The breasts are heterogeneously dense, which may obscure small masses. FINDINGS: Bilateral subglandular implants appear intact. An irregular density best seen on tomographic images at the 12:00 position is not well seen on the MLO view. See annotations. A small nodule at the nipple line on the left CC projection is stable. There is no suspicious finding on the left. BI-RADS CATEGORY 0: Incomplete--Needs Additional Imaging Evaluation. RECOMMENDATION: 1. Spot compression and sonography of an irregular density at the right 12:00 position. Electronically signed by: Sumi Ash MD (04/20/2020 5:48 PM) [id number]
== END ==
LOC: MAMMO 14:26
PROVIDERS: ATTEND Physician Assistant Medical
DX: Z12.31 Encounter for screening mammogram for malignant neoplasm of breast (principal); N63.42 Unspecified lump in left breast, subareolar; N64.89 Other specified disorders of breast
CPT/HCPCS: 77063; 77067

== ENCOUNTER → 2020-05-07 | Outpatient (CLI) | payer OTHER ==
--- NOTE | 2020-05-07 15:05 | RAD ---
DATE: 05/07/2020 2:03 PM EXAM: DIGITAL DIAGNOSTIC RT, BREAST RIGHT HISTORY: Screening recall for asymmetry in the right breast COMPARISON: 04/19/2020, 10/09/2016 TECHNIQUE: Additional mammographic views of the right breast including spot compression view in the CC implant displaced projection were obtained in addition to targeted ultrasound of the superior right breast. FINDINGS: Breast Density: HETERO The breast parenchyma Is heterogeneously dense, which could reduce sensitivity of mammography. Breast parenchyma level C The asymmetry in the superior right breast changed configuration in a pattern suggesting overlap of fibroglandular tissue but did not fully dissipate so targeted ultrasound was performed. Ultrasound of the right breast and axilla showed a 1 cm hypovascular oval mass at the right 1:00 position 5 cm from the nipple with well-defined margins that is favored to represent benign fibrocystic change. The right axilla showed no adenopathy. In correlation with previous mammograms, the asymmetry may have been present on previous mammograms dating back to 2016 but is better seen on the more recent 3-D mammograms. No suspicious interval change is appreciated on additional diagnostic mammographic views. IMPRESSION: Benign findings on right diagnostic mammogram and targeted breast ultrasound. BI-RADS CATEGORY: 2 BENIGN FINDING(S) RECOMMENDED FOLLOW-UP: 12M 12 MONTH FOLLOW-UP Annual screening mammography is recommended, unless clinically indicated sooner based on symptoms or change in physical exam. PQRS compliance statement: Patient information was entered into a reminder system with a target due date 05/08/2021 for the next mammogram. Mammography is a sensitive method for finding small breast cancers, but it does not detect them all and is not a substitute for careful clinical examination. A negative mammogram does not negate a clinically suspicious finding and should not result in delay in biopsying a clinically suspicious abnormality. "Our facility is accredited by the [employer] Mammography [employer]."
== END | disposition home or self-care (01) ==
LOC: MAMMO 13:35
PROVIDERS: ATTEND Physician Assistant
DX: R92.2 Inconclusive mammogram (principal); N63.12 Unspecified lump in the right breast, upper inner quadrant
CPT/HCPCS: 76641; 77065

== ENCOUNTER 2020-06-10 07:17 | Emergency (ER) | payer OTHER ==
[~2020-06-10] VITALS: Ht 180.3 cm; Wt 113.6 kg
[2020-06-10 07:34] VITALS: BP 117/81
[2020-06-10] MEDS ORDERED: DEXAMETHASONE SOD PHOS 10 MG/ML VIAL. IV ONE (07:45)
[2020-06-10] MEDS ORDERED: diphenhydrAMINE 50 MG/ML VIAL IVP ONE (07:45)
[2020-06-10] MEDS ORDERED: PROCHLORPERAZINE 10 MG/2 ML VIAL. IV ONE (07:45)
--- NOTE | 2020-06-10 07:49 | PHYS DOC ---
Past History Past Medical History: Migraines Past Surgical History: Hysterectomy Smoking: Non-smoker Alcohol Use: None Drug Use: None Adult General Chief Complaint Chief Complaint: HEADACHE HPI HPI Patient is a 44-year-old female who presents for migraine. Reports typical migraine for her that started on Thursday evening, she was unable to sleep overnight and subsequently took x2 sumatriptan tablets that typically resolves previous migraines on Thursday without relief. Patient presents today given constant migraine causing lack of sleep. Patient has history of this, has history of x2 ER visits for abortive migraine relief in past with most recent episode ~2 years ago, she is followed in outpatient setting by PCP and currently in the process of establishing with neurology. Associated symptoms with this migraine include mild blurred vision of left eye, nausea, and photophobia. Denies fever, chills, worst headache of life, tearing/ripping sensation, CP, SHOB, AP, covid-19 contact, recent travel, or concerning ingestion. Review of Systems Review of Systems Fourteen body systems of review of systems have been reviewed. See HPI for pertinent positives and negative responses, other steven all other systems are negative, non-pertinent or non-contributory Current Medications Current Medications Current Medications Medications (Trade) Dose Ordered Sig/Gilda Start Time Stop Time Status Last Admin Dose Admin Dexamethasone Sodium Phosphate (Decadron) 10 mg 1X ONCE 06/10/20 07:45 06/10/20 07:46 UNV Diphenhydramine HCl (Benadryl) 50 mg 1X ONCE 06/10/20 07:45 06/10/20 07:46 UNV Prochlorperazine Edisylate (Compazine) 10 mg 1X ONCE 06/10/20 07:45 06/10/20 07:46 UNV Allergies Allergies Allergies Coded Allergies Type Severity Reaction Last Updated Verified No Known Drug Allergies 02/05/17 No Physical Exam Physical Exam Constitutional: Well developed, well nourished, no acute distress, non-toxic appearance. HENT: Normocephalic, atraumatic, bilateral external ears normal, oropharynx mois t, no oral exudates, nose normal. Eyes: PERRLA, EOMI, conjunctiva normal, no discharge. Neck: Normal range of motion, no tenderness, supple, no stridor. Cardiovascular: Heart rate regular, sinus rhythm, no murmurs rubs or gallops Lungs & Thorax: Bilateral breath sounds clear to auscultation Abdomen: Bowel sounds normal, soft, no tenderness, no masses, no pulsatile masses. Nonsurgical abdomen, no peritoneal signs Skin: Warm, dry, no erythema, no rash. Back: No tenderness, no CVA tenderness. Extremities: No tenderness, no cyanosis, no clubbing, ROM intact, no edema. Neurologic: Alert and oriented X 3, grossly normal motor & sensory function, no focal deficits noted. Psychologic: Affect normal, judgement normal, mood normal. Current Patient Data Vital Signs Vital Signs Date Time Temp Pulse Resp B/P (MAP) Pulse Ox O2 Delivery O2 Flow Rate FiO2 06/10/20 07:34 97.9 101 20 117/81 (93) 97 EKG EKG [] Radiology/Procedures Radiology/Procedures [] Course & Med Decision Making Course & Med Decision Making Ambulatory well-appearing patient seen on immediate ER arrival ABCs unremarkable Conference of history and physical exam obtained without any obvious red flags, presenting headache typical of previous, no further diagnostic work-up indicated at this time IV access obtained, 1 L normal saline, 10 mg IV Compazine, 50 mg IV Benadryl, 10 mg IV dexamethasone with subsequent 15mg Toradol, 1g Tylenol and 10mg Reglan administered with near total improvement in patient's migraine Patient reassessed numerous times by various healthcare providers in ER, at time of discharge, patient was symptom-free and eager for discharge home with close PCP follow-up and subsequent neurology evaluation Strict return precautions discussed with good understanding by patient, all questions and concerns addressed prior to ER departure in improved condition Dragon Disclaimer Dragon Disclaimer This electronic medical record was generated, in whole or in part, using a voice recognition dictation system. Departure Departure: Impression: Primary Impression: Migraine Disposition: 01 HOME/RESIDENCE PRIOR TO ADM Condition: STABLE Referrals: TAVON HOSKINS (PCP) Patient Instructions: Migraine Headache Justification of Admission: Justification of Admission: Justification of Admission Dx: N/A KIT GONSALES DO Jun 10, 2020 07:49
[2020-06-10] MEDS ORDERED: KETOROLAC 15 MG/ML VIAL. ONE (08:40)
[2020-06-10] MEDS ORDERED: METOCLOPRAMIDE HCL 10 MG/2 ML VIAL. IVP ONE (08:45)
[2020-06-10] MEDS ORDERED: ACETAMINOPHEN 500 MG TABLET PO ONE (08:45)
== END 2020-06-10 09:22 | disposition home or self-care (01) ==
LOC: ER 07:17
DX: G43.909 Migraine, unspecified, not intractable, without status migrainosus (principal)
CPT/HCPCS: 96374; 96375; 99284; J0780; J1100; J1200; J2765

== ENCOUNTER → 2020-12-20 | Outpatient (CLI) | payer OTHER ==
--- NOTE | 2020-12-20 08:47 | RAD ---
Exam Date: 12/20/2020 7:59 AM US ABDOMEN COMPLETE Indication: Reason: RUQ ABD PAIN / Spl. Instructions: / History: TECHNIQUE: Multiple longitudinal and transverse sonographic images of the abdomen are submitted for interpretation. FINDINGS: The liver is normal in size and echogenicity. The portal vein is patent, with hepatopetal flow. N o focal intrahepatic abnormality is seen. The gallbladder is normal, without gallstones, gallbladder wall thickening or pericholecystic fluid. There is no biliary ductal dilatation, with the common bile duct measuring 2 mm. The spleen is normal in size and echogenicity. The visualized abdominal aorta, inferior vena cava an d pancreas are within normal limits. There is no upper abdominal ascites. The kidneys are normal in appearance, with the right kidney measuring 12.7 cm and the left kidney measuring 12.7 cm. IMPRESSION: Normal abdominal ultrasound. Electronically signed by: Kelvin Arciniega MD (12/20/2020 8:45 AM) [id number]
== END ==
LOC: US 07:50
PROVIDERS: ATTEND Physician Assistant
DX: R10.11 Right upper quadrant pain (principal)
CPT/HCPCS: 76700

== ENCOUNTER → 2021-02-22 | Outpatient (CLI) | payer OTHER ==
[~2021-02-22] MED LIST changes: +ATOR20TA58 PO; +TOPI25TA52 PO
--- NOTE | 2021-02-22 15:25 | RAD ---
DATE: February 22, 2021 EXAM: MAMMO MARKEL DIAG RT, BREAST RIGHT HISTORY: Palpable lump of the upper outer quadrant of the right breast. History of breast implant. COMPARISON: 2017 and May 07, 2020 This study was interpreted with the benefit of Computerized Aided Detection (CAD). DIAGNOSTIC MAMMOGRAPHIC RIGHT BREAST FINDINGS: Breast Density: HETERO The breast parenchyma is heterogenously dense, which could reduce sensitivity of mammography. Breast parenchyma level C.. An seen is a retromammary saline breast implant. Again seen is a nodule located just anterior to the breast implant is unchanged. Metallic BB is placed on the upper outer quadrant breast bella the palpable abnormality as indicated by the patient. No underlying focal mammographic abnormality seen here. RIGHT BREAST SONOGRAPHY: High-resolution sonography of the palpable lump of the 10:00 position of the right breast as indicated by the patient was performed. No focal sonographic abnormality is seen here. Sonography of the right axillary region demonstrates no abnormal-appearing lymph node. IMPRESSION: No focal mammographic or sonographic abnormality is seen to correspond to the palpable lump of the upper outer quadrant of the right breast. Therefore, with regard to any palpable lump, follow-up should be clinical. Otherwise recommend returning to screening mammography protocol. Note-the patient is due for screening mammogram on the left side in April 2021. BI-RADS CATEGORY: 1 NEGATIVE RECOMMENDED FOLLOW-UP: 3M 3 MONTH FOLLOW-UP PQRS compliance statement: Patient information was entered into a reminder system with a target due date April 20, 2021 for the next mammogram. Specifically, the patient is due for annual screening mammogram on the left side at that time. Mammography is a sensitive method for finding small breast cancers, but it does not detect them all and is not a substitute for careful clinical examination. A negative mammogram does not negate a clinically suspicious finding and should not result in delay in biopsying a clinically suspicious abnormality. "Our facility is accredited by the [employer] Mammography Program." The patient's breast density may affect the ability of mammography to detect breast cancer. There are 4 categories of breast density, A, B, C and D. Breast density A means that most of the breast tissue is replaced with adipose tissue and therefore is not dense. Breast density B means that the breast tissue is mildly dense and scattered. Breast density C means that the breast tissue is heterogeneously dense. Breast density D means that the breast tissue is very dense. Breast densities especially C and D may decrease the sensitivity of mammography to detect breast cancer. Therefore, the patient may benefit from 3-D breast mammography (3D breast tomography) as a part of their screening mammogram. Insurance may or may not pay for this additional imaging. The patient's breast density based on today's mammogram is category C.
== END ==
LOC: MAMMO 13:04
PROVIDERS: ATTEND Physician Assistant
DX: N63.11 Unspecified lump in the right breast, upper outer quadrant (principal)
CPT/HCPCS: 76641; 77065; G0279; 77061

== ENCOUNTER → 2021-02-22 | Outpatient (CLI) | payer OTHER ==
[~2021-02-22] VITALS: Ht 180.3 cm; Wt 108.9 kg
[~2021-02-22] MED LIST changes: +SINCALIDE 2.2 MCG in IV NORMAL SALINE 50ML 30 ML IV ONE
--- NOTE | 2021-02-22 10:36 | RAD ---
INDICATION: Abdomen pain. COMPARISON: December 20, 2020. TECHNIQUE: 5.5mCi of Tc99m Choletec was injected intravenously followed by scintigraphic images of the abdomen. 2.2 mcg of CCK was then injected and a gallbladder ejection fraction was calculated. FINDINGS: Appropriate radiotracer clearance from the blood pool. Appropriate radiotracer excretion into the biliary tree. Prompt passage of contrast into the small bowel. Visualization of the gallbladder prior to the 60 minute time point. Gallbladder ejection fraction is 92 percent. IMPRESSION: 1. No scintigraphic evidence of acute cholecystitis or high grade biliary obstruction. 2. No evidence of biliary dyskinesia. Electronically signed by: Mateo Kent MD (02/22/2021 10:34 AM) [id number]
== END ==
LOC: NM 07:42
PROVIDERS: ATTEND Physician Assistant
DX: R10.11 Right upper quadrant pain (principal)
CPT/HCPCS: 78227; A9537; J2805